=== PATIENT | male | born 1970 | race African-American/Black ===

== ENCOUNTER 2022-10-26 00:13 | Emergency (ER) | payer OTHER ==
[2022-10-26 01:21] LABS: PTT 27.1 sec (22.0-33.0); Prothrombin Time 10.9 sec (9.5-12.1)
[2022-10-26 01:26] LABS: Acetaminophen Less than 10 mcg/mL (10.0-30.0); Alcohol Less than 10.0 mg/dL (Less than 10); Magnesium 1.9 mg/dL (1.6-2.6); Salicylate Less than 8.0 mg/dL (15.0-30.0)
[2022-10-26 01:27] LABS: ALT (SGPT) 17 U/L (8-55); AST (SGOT) 17 U/L (5-34); Albumin 3.8 g/dL (3.5-5.0); Alkaline Phosphatase 41 U/L (40-110); Anion Gap 13 mmol/L (10-20); BUN (Urea Nitrogen) 10 mg/dL (8.4-25.7); Bilirubin, Total 0.4 mg/dL (0.2-1.2); Calc. Creatinine Clearance 0 mL/min (70-130); Carbon Dioxide 25 mmol/L (22-29); Chloride 108 mmol/L (98-107); Estimated GFR 97; Globulin 3.3 g/dL (2.4-3.5); Glucose 97 mg/dL (70-105); Potassium 4.1 mmol/L (3.5-5.1); Protein, Total 7.1 g/dL (6.0-8.3); Sodium 142 mmol/L (136-145)
[2022-10-26 01:33] LABS: Troponin I Less than 0.010 ng/mL (< 0.028)
[2022-10-26 01:40] LABS: Hematocrit 38.9 % (38.8-50.0); Hemoglobin 12.8 g/dL (13.5-17.5); Mean Corpuscular HGB CONC 32.9 g/dL (32.0-36.0); Mean Corpuscular Volume 85.1 fl (81.2-95.1); Mean Platelet Volume 13.3 fl (7.4-10.4); Platelet Count 173 10x3/uL (150-450); RBC Distribution Width 13.2 % (11.5-14.5); Red Blood Cell (RBC) Count 4.57 10x6/uL (4.32-5.72); White Blood Cell (WBC) Count 8.5 10x3/uL (3.5-10.5)
[2022-10-26 01:41] LABS: MDiff Complete? YES
[2022-10-26 01:43] LABS: Bilirubin Neg (Negative); Blood, Urine Negative (Negative); Clarity Clear (Clear); Glucose, Urine (Dipstick) Normal (Negative); Ketone, Urine Negative (Negative); Leukocyte Negative (Negative); Nitrite Negative (Negative); Protein, Urine (Dipstick) 30 mg/dl (Neg-Trace); Urobilinogen Normal mg/dL (Less than 2)
[2022-10-26 01:50] LABS: Amphetamine Not Detected (NotDetected); Barbiturates Screen Not Detected (NotDetected); Benzodiazepine Screen Not Detected (NotDetected); Cocaine Metabolite Screen Not Detected (NotDetected); Methadone Not Detected (NotDetected); Methamphetamine Not Detected (NotDetected); Opiate Screen Not Detected (NotDetected); Oxycodone Screen Not Detected (NotDetected); Phencyclidine (PCP) Not Detected (NotDetected); THC/Cannabinoid Screen Not Detected (NotDetected); Tricyclic Screen Not Detected (NotDetected)
[2022-10-26 01:57] LABS: Microcytosis SLIGHT = 6-15 cells (100X) (0-5/hpf); Platelet Adequacy Comment Appears Adequate
[2022-10-26 02:00] LABS: Band 2 % (5-11); Eosinophils 5 % (0-10); Lymphocytes 20 % (21-51); Monocytes 9 % (0-10); Neutrophil 64 % (42-75)
[2022-10-26 02:20] LABS: Bacteria/HPF None Seen HPF (None Seen); CAUTI Indications for Culture Alt mental st,lethar; RBC/HPF None Seen HPF (0-3); Squamous Epithelial None Seen HPF (0-3); WBC/HPF None Seen HPF (0-3)
[2022-10-26 02:21] LABS: Urine Culture Reflex No No
== END 2022-10-26 03:44 ==
LOC: CSHERS 00:13
DX: R41.0 Disorientation, unspecified (principal); I25.10 Atherosclerotic heart disease of native coronary artery without angina pectoris; I48.91 Unspecified atrial fibrillation; I10 Essential (primary) hypertension; E78.5 Hyperlipidemia, unspecified; K21.9 Gastro-esophageal reflux disease without esophagitis; Z79.01 Long term (current) use of anticoagulants; Z79.899 Other long term (current) drug therapy; Z79.82 Long term (current) use of aspirin
CPT/HCPCS: 70450; 80053; 80306; 80307; 81001; 83735; 83880; 84484; 85025; 85610; 85730; 93005

== ENCOUNTER 2022-10-28 05:39 | Inpatient (IN) | payer OTHER ==
[2022-10-28] MEDS ORDERED: Aspirin Chewable 81 MG TAB ONE (06:03)
[2022-10-28] MEDS ORDERED: Nitroglycerin 2% Ointment 1 INCH/1 GM Packet ONE (06:04)
[2022-10-28] MEDS ORDERED: Ondansetron PF 4 MG/2 ML Vial ONE (06:04)
[2022-10-28 06:19] LABS: Hematocrit 43.6 % (38.8-50.0); Hemoglobin 14.6 g/dL (13.5-17.5); Mean Corpuscular HGB CONC 33.5 g/dL (32.0-36.0); Mean Corpuscular Hemoglobin 28.1 pg (27.0-33.0); Mean Platelet Volume 13.2 fl (7.4-10.4); Platelet Count 186 10x3/uL (150-450); RBC Distribution Width 12.9 % (11.5-14.5); Red Blood Cell (RBC) Count 5.19 10x6/uL (4.32-5.72); White Blood Cell (WBC) Count 8.6 10x3/uL (3.5-10.5)
[2022-10-28 06:20] LABS: MDiff Complete? YES
[2022-10-28 06:25] LABS: INR-International Normal Ratio 1.2; PTT 28.5 sec (22.0-33.0); Prothrombin Time 12.8 sec (9.5-12.1)
[2022-10-28 06:28] LABS: ALT (SGPT) 18 U/L (8-55); AST (SGOT) 21 U/L (5-34); Albumin 3.7 g/dL (3.5-5.0); Alkaline Phosphatase 35 U/L (40-110); Anion Gap 16 mmol/L (10-20); BUN (Urea Nitrogen) 12 mg/dL (8.4-25.7); Bilirubin, Total 0.7 mg/dL (0.2-1.2); Calc. Creatinine Clearance 0 mL/min (70-130); Calcium 9.1 mg/dL (7.8-10.44); Carbon Dioxide 23 mmol/L (22-29); Chloride 107 mmol/L (98-107); Estimated GFR 88; Globulin 3.1 g/dL (2.4-3.5); Glucose 105 mg/dL (70-105); Magnesium 1.8 mg/dL (1.6-2.6); Potassium 4.2 mmol/L (3.5-5.1); Protein, Total 6.8 g/dL (6.0-8.3); Sodium 142 mmol/L (136-145)
[2022-10-28 06:35] LABS: Troponin I 0.021 ng/mL (< 0.028)
[2022-10-28 06:45] LABS: Microcytosis SLIGHT = 6-15 cells (100X) (0-5/hpf); Platelet Adequacy Comment Appears Adequate
[2022-10-28 06:46] LABS: Band 4 % (5-11); Eosinophils 2 % (0-10); Lymphocytes 22 % (21-51); Monocytes 11 % (0-10); Neutrophil 61 % (42-75); Nucleated RBC (Manual Ct) 1 % (0)
[2022-10-28] MEDS ORDERED: Acetaminophen 500 MG TAB ONE (08:10)
[2022-10-28] MEDS ORDERED: Metoprolol Tartrate 5 MG/5 ML VIAL ONE (08:10)
[2022-10-28 08:56] LABS: SARS-CoV-2 NAA Rapid Test Not Detected (NotDetected)
[2022-10-28] MEDS ORDERED: Nitroglycerin 0.4 MG TAB (25 Tab Bottle) SL PRN (09:28)
[2022-10-28 10:16] LABS: Troponin I 0.019 ng/mL (< 0.028)
[2022-10-28 10:38] VITALS: BMI 34.0
[2022-10-28 13:04] LABS: Troponin I 0.021 ng/mL (< 0.028)
[2022-10-28] MEDS ORDERED: Magnesium 2 GM/50 ML(in water) 2 GM in Premix Bag 1 BAG IVPB SCH (14:00)
[2022-10-28] MEDS: Warfarin Sodium 5 MG TAB PO SCH (15:57)
[2022-10-28] MEDS: Mometasone 100 MCG/PUFF (1 INHALER) INH SCH (19:16)
[2022-10-28] MEDS: Metoprolol Tartrate 50 MG TAB PO SCH (22:08)
[2022-10-28] MEDS: Famotidine 20 MG TAB PO SCH (22:08)
[2022-10-28] MEDS: Minoxidil 2.5 MG TAB PO SCH (22:08)
[2022-10-28] MEDS: Enoxaparin 120 MG/0.8 ML SYRINGE SC SCH (22:09)
[2022-10-28] MEDS: Simvastatin 10 MG TAB PO SCH (22:09)
[2022-10-28] MEDS: Calcium Carbonate 500 MG ChewTAB PO SCH (22:09)
[2022-10-29 04:39] LABS: #Eosinphils 0.1 10x3/uL (0.0-0.5); #Neutrophils 4.5 10x3/uL (1.5-8.4); %Basophils 0.5 % (0.0-2.0); %Eosinophils 1.7 % (0.0-6.0); %Monocytes 12.4 % (0.0-10.0); %Neutrophils 57.1 % (40.0-75.0); Mean Corpuscular HGB CONC 33.3 g/dL (32.0-36.0); Mean Corpuscular Hemoglobin 27.9 pg (27.0-33.0); Mean Corpuscular Volume 83.8 fl (81.2-95.1); Mean Platelet Volume 14.2 fl (7.4-10.4); Platelet Count 190 10x3/uL (150-450); RBC Distribution Width 12.9 % (11.5-14.5); Red Blood Cell (RBC) Count 5.01 10x6/uL (4.32-5.72); White Blood Cell (WBC) Count 7.8 10x3/uL (3.5-10.5)
[2022-10-29 04:40] LABS: Anion Gap 14 mmol/L (10-20); BUN (Urea Nitrogen) 13 mg/dL (8.4-25.7); Calc. Creatinine Clearance 166 mL/min (70-130); Calcium 8.3 mg/dL (7.8-10.44); Carbon Dioxide 23 mmol/L (22-29); Chloride 107 mmol/L (98-107); Estimated GFR 101; Glucose 106 mg/dL (70-105); Potassium 3.8 mmol/L (3.5-5.1); Sodium 140 mmol/L (136-145)
[2022-10-29] MEDS: Terazosin HCl 1 MG CAP PO SCH ×2 (05:44→20:18)
[2022-10-29] MEDS ORDERED: Furosemide 20 MG TAB PO SCH (09:00)
[2022-10-29] MEDS: Calcium Carbonate 500 MG ChewTAB PO SCH ×3 (09:28→20:17)
[2022-10-29] MEDS: Minoxidil 2.5 MG TAB PO SCH ×2 (09:28→20:17)
[2022-10-29] MEDS: Enoxaparin 120 MG/0.8 ML SYRINGE SC SCH ×2 (09:28→20:17)
[2022-10-29] MEDS: Potassium Chloride 10 MEQ TAB PO SCH (09:29)
[2022-10-29] MEDS: Aspirin Chewable 81 MG TAB PO SCH (09:30)
[2022-10-29] MEDS: Metoprolol Tartrate 50 MG TAB PO SCH ×2 (09:30→20:31)
[2022-10-29] MEDS: Mometasone 100 MCG/PUFF (1 INHALER) INH SCH ×2 (10:10→19:25)
[2022-10-29 14:18] LABS: Hemoglobin A1c 5.6 % (4.0-6.0)
[2022-10-29] MEDS ORDERED: Digoxin 0.25 MG TAB PO SCH (15:00)
[2022-10-29 15:11] LABS: INR-International Normal Ratio 1.3; Prothrombin Time 13.8 sec (9.5-12.1)
[2022-10-29] MEDS: Warfarin Sodium 7.5 MG TAB PO SCH (16:42)
[2022-10-29] MEDS: Famotidine 20 MG TAB PO SCH (20:17)
[2022-10-29] MEDS: Simvastatin 10 MG TAB PO SCH (20:18)
[2022-10-29] MEDS: Acetaminophen 325 MG TAB PO PRN (20:22)
[2022-10-30 03:35] LABS: INR-International Normal Ratio 1.3; Prothrombin Time 14.2 sec (9.5-12.1)
[2022-10-30 03:46] LABS: Anion Gap 14 mmol/L (10-20); BUN (Urea Nitrogen) 14 mg/dL (8.4-25.7); Calc. Creatinine Clearance 139 mL/min (70-130); Calcium 8.5 mg/dL (7.8-10.44); Carbon Dioxide 21 mmol/L (22-29); Chloride 110 mmol/L (98-107); Estimated GFR 81; Glucose 93 mg/dL (70-105); Potassium 3.7 mmol/L (3.5-5.1); Sodium 141 mmol/L (136-145)
[2022-10-30 03:47] LABS: #Eosinphils 0.2 10x3/uL (0.0-0.5); #Monocytes 0.9 10x3/uL (0.0-1.1); #Neutrophils 3.5 10x3/uL (1.5-8.4); %Basophils 0.4 % (0.0-2.0); %Eosinophils 2.2 % (0.0-6.0); %Lymphocytes 36.8 % (18.0-47.0); %Monocytes 12.3 % (0.0-10.0); %Neutrophils 48.2 % (40.0-75.0); Hematocrit 42.3 % (38.8-50.0); Hemoglobin 14.1 g/dL (13.5-17.5); Mean Corpuscular HGB CONC 33.3 g/dL (32.0-36.0); Mean Corpuscular Hemoglobin 27.9 pg (27.0-33.0); Mean Corpuscular Volume 83.6 fl (81.2-95.1); Mean Platelet Volume 14.6 fl (7.4-10.4); Platelet Count 169 10x3/uL (150-450); RBC Distribution Width 12.7 % (11.5-14.5); Red Blood Cell (RBC) Count 5.06 10x6/uL (4.32-5.72); White Blood Cell (WBC) Count 7.3 10x3/uL (3.5-10.5)
[2022-10-30] MEDS ORDERED: Furosemide 20 MG TAB PO SCH (09:00)
[2022-10-30] MEDS: Calcium Carbonate 500 MG ChewTAB PO SCH ×3 (09:09→22:03)
[2022-10-30] MEDS: Potassium Chloride 10 MEQ TAB PO SCH (09:09)
[2022-10-30] MEDS: Minoxidil 2.5 MG TAB PO SCH ×2 (09:10→22:07)
[2022-10-30] MEDS: Digoxin 0.25 MG TAB PO SCH (09:11)
[2022-10-30] MEDS: Metoprolol Tartrate 50 MG TAB PO SCH ×2 (09:11→22:07)
[2022-10-30] MEDS: Enoxaparin 120 MG/0.8 ML SYRINGE SC SCH ×2 (09:11→22:03)
[2022-10-30] MEDS: Aspirin Chewable 81 MG TAB PO SCH (09:11)
[2022-10-30] MEDS: Mometasone 100 MCG/PUFF (1 INHALER) INH SCH ×2 (11:33→19:26)
[2022-10-30] MEDS: Warfarin Sodium 5 MG TAB PO SCH (16:24)
[2022-10-30] MEDS: Terazosin HCl 1 MG CAP PO SCH (22:03)
[2022-10-30] MEDS: Simvastatin 10 MG TAB PO SCH (22:04)
[2022-10-30] MEDS: Famotidine 20 MG TAB PO SCH (22:07)
[2022-10-30] MEDS: Sotalol HCl 80 MG TAB PO SCH (22:07)
[2022-10-31] MEDS ORDERED: Ondansetron PF 4 MG/2 ML Vial IVP SCH (00:50)
[2022-10-31] MEDS ORDERED: Sodium Chloride 0.9% 250 ML 250 ML IVPB SCH (00:50)
[2022-10-31] MEDS ORDERED: Ondansetron PF 4 MG/2 ML Vial IVP PRN (03:04)
[2022-10-31 04:05] LABS: Anion Gap 14 mmol/L (10-20); BUN (Urea Nitrogen) 11 mg/dL (8.4-25.7); Calc. Creatinine Clearance 186 mL/min (70-130); Calcium 8.6 mg/dL (7.8-10.44); Carbon Dioxide 21 mmol/L (22-29); Chloride 109 mmol/L (98-107); Estimated GFR 106; Glucose 103 mg/dL (70-105); INR-International Normal Ratio 1.5; Potassium 3.9 mmol/L (3.5-5.1); Prothrombin Time 16.2 sec (9.5-12.1); Sodium 140 mmol/L (136-145)
[2022-10-31 04:33] LABS: #Eosinphils 0.2 10x3/uL (0.0-0.5); #Monocytes 0.9 10x3/uL (0.0-1.1); #Neutrophils 3.7 10x3/uL (1.5-8.4); %Basophils 0.3 % (0.0-2.0); %Eosinophils 2.4 % (0.0-6.0); %Lymphocytes 28.9 % (18.0-47.0); %Monocytes 12.6 % (0.0-10.0); %Neutrophils 55.5 % (40.0-75.0); Hematocrit 39.3 % (38.8-50.0); Hemoglobin 13.2 g/dL (13.5-17.5); Mean Corpuscular HGB CONC 33.6 g/dL (32.0-36.0); Mean Corpuscular Hemoglobin 28.1 pg (27.0-33.0); Mean Corpuscular Volume 83.8 fl (81.2-95.1); Mean Platelet Volume 14.7 fl (7.4-10.4); Platelet Count 166 10x3/uL (150-450); RBC Distribution Width 12.7 % (11.5-14.5); Red Blood Cell (RBC) Count 4.69 10x6/uL (4.32-5.72); White Blood Cell (WBC) Count 6.7 10x3/uL (3.5-10.5)
[2022-10-31] MEDS: Acetaminophen 325 MG TAB PO PRN (04:48)
[2022-10-31] MEDS: Mometasone 100 MCG/PUFF (1 INHALER) INH SCH ×2 (07:45→21:15)
[2022-10-31] MEDS: Metoprolol Tartrate 50 MG TAB PO SCH (09:22)
[2022-10-31] MEDS: Digoxin 0.25 MG TAB PO SCH (09:42)
[2022-10-31] MEDS: Calcium Carbonate 500 MG ChewTAB PO SCH ×3 (09:42→22:29)
[2022-10-31] MEDS: Aspirin Chewable 81 MG TAB PO SCH (09:42)
[2022-10-31] MEDS: Enoxaparin 120 MG/0.8 ML SYRINGE SC SCH ×2 (09:43→22:29)
[2022-10-31] MEDS: Potassium Chloride 10 MEQ TAB PO SCH (09:43)
[2022-10-31] MEDS: Sotalol HCl 80 MG TAB PO SCH ×3 (09:44→21:45)
[2022-10-31] MEDS: Warfarin Sodium 7.5 MG TAB PO SCH (17:47)
[2022-10-31] MEDS: Famotidine 20 MG TAB PO SCH (21:40)
[2022-10-31] MEDS: Metoprolol Tartrate 25 MG TAB PO SCH (21:41)
[2022-10-31] MEDS: Simvastatin 10 MG TAB PO SCH (21:41)
[2022-10-31] MEDS: Terazosin HCl 1 MG CAP PO SCH ×2 (22:33→22:48)
[2022-11-01 04:37] LABS: INR-International Normal Ratio 1.6; Prothrombin Time 17.3 sec (9.5-12.1)
[2022-11-01] MEDS ORDERED: Warfarin Sodium 7.5 MG TAB PO SCH (06:45)
[2022-11-01 07:01] LABS: Anion Gap 11 mmol/L (10-20); BUN (Urea Nitrogen) 12 mg/dL (8.4-25.7); Calc. Creatinine Clearance 179 mL/min (70-130); Calcium 8.5 mg/dL (7.8-10.44); Carbon Dioxide 23 mmol/L (22-29); Chloride 110 mmol/L (98-107); Estimated GFR 105; Glucose 111 mg/dL (70-105); Potassium 3.9 mmol/L (3.5-5.1); Sodium 140 mmol/L (136-145)
[2022-11-01 07:28] LABS: #Eosinphils 0.2 10x3/uL (0.0-0.5); #Monocytes 0.8 10x3/uL (0.0-1.1); #Neutrophils 3.3 10x3/uL (1.5-8.4); %Basophils 0.3 % (0.0-2.0); %Lymphocytes 32.8 % (18.0-47.0); %Monocytes 12.6 % (0.0-10.0); Hematocrit 38.5 % (38.8-50.0); Hemoglobin 12.9 g/dL (13.5-17.5); Mean Corpuscular HGB CONC 33.5 g/dL (32.0-36.0); Mean Corpuscular Hemoglobin 28.1 pg (27.0-33.0); Mean Corpuscular Volume 83.9 fl (81.2-95.1); Platelet Count 150 10x3/uL (150-450); RBC Distribution Width 12.6 % (11.5-14.5); Red Blood Cell (RBC) Count 4.59 10x6/uL (4.32-5.72); White Blood Cell (WBC) Count 6.4 10x3/uL (3.5-10.5)
[2022-11-01] MEDS: Mometasone 100 MCG/PUFF (1 INHALER) INH SCH (08:10)
[2022-11-01] MEDS: Metoprolol Tartrate 25 MG TAB PO SCH (08:37)
[2022-11-01] MEDS: Aspirin Chewable 81 MG TAB PO SCH (08:37)
[2022-11-01] MEDS: Potassium Chloride 10 MEQ TAB PO SCH (08:37)
[2022-11-01] MEDS: Sotalol HCl 80 MG TAB PO SCH (08:38)
[2022-11-01] MEDS: Digoxin 0.25 MG TAB PO SCH (08:38)
[2022-11-01] MEDS: Calcium Carbonate 500 MG ChewTAB PO SCH ×2 (08:38→15:00)
[2022-11-01] MEDS: Enoxaparin 120 MG/0.8 ML SYRINGE SC SCH (08:38)
[2022-11-01] MEDS ORDERED: Scopolamine 1.5 mg/72 hour Patch TD SCH (10:00)
[2022-11-01 11:58] VITALS: BP 144/74; TEMP 98.2
[2022-11-01] MEDS ORDERED: Apixaban 5 MG TAB PO SCH (21:00)
[2022-11-02] MEDS ORDERED: Warfarin Sodium 5 MG TAB PO SCH (09:00)
== END 2022-11-01 15:35 | DRG 309 ==
LOC: CSHERS 05:39 → EEVIPCON 09:28 → CSHERHOLD 09:28 → CSHTELE 12:41 → OBSVTOIN 10-30 16:29
PROVIDERS: ADMIT Internal Medicine; ATTEND Emergency Medicine
DX: I48.0 Paroxysmal atrial fibrillation (principal); I50.32 Chronic diastolic (congestive) heart failure; I48.92 Unspecified atrial flutter; I11.0 Hypertensive heart disease with heart failure; E78.5 Hyperlipidemia, unspecified; Z20.822 Contact with and (suspected) exposure to COVID-19; J45.909 Unspecified asthma, uncomplicated; K21.9 Gastro-esophageal reflux disease without esophagitis; I25.10 Atherosclerotic heart disease of native coronary artery without angina pectoris; M19.90 Unspecified osteoarthritis, unspecified site; R73.03 Prediabetes; Z79.899 Other long term (current) drug therapy; Z83.3 Family history of diabetes mellitus; Z82.49 Family history of ischemic heart disease and other diseases of the circulatory system; Z86.73 Personal history of transient ischemic attack (TIA), and cerebral infarction without residual deficits; Z79.82 Long term (current) use of aspirin; Z79.01 Long term (current) use of anticoagulants; Z88.8 Allergy status to other drugs, medicaments and biological substances
CPT/HCPCS: 36415; 71045; 80048; 80053; 83036; 83735; 83880; 84443; 84484; 85025; 85610; 85730; 93005; 93010; 93306; 94664; 94760; 96374; 96375; J1650; J2405; J3475; J7050; U0002